=== PATIENT | female | born 1980 | race Hispanic/Latino ===

== ENCOUNTER 2017-02-16 04:34 | Inpatient (IN) | payer OTHER ==
[~2017-02-16 04:34] MED LIST: ADVIL200 MG PO; DILAUDID2 MG PO; LOTRIMIN ULTRA12 GM TOP; MOTRIN IB200 MG PO; NORCO 5-325 TA1 EACH; NORCO 5-325 TA1 EACH PO; OMEPRAZOLE20 MG PO; PERCOCET 10-321 EACH PO; PERCOCET 5-3251 EACH PO; Q-PAP EXTRA ST500 MG PO; RANITIDINE HCL150 MG PO; VICODIN 5-3001 EACH PO; ZOFRAN ODT4 MG PO
--- NOTE | 2017-02-16 07:52 | PR ---
[facility] [address] [facility] [place], [place] [address] Signed Progress Notes IP Datetime Report Generated by CPGiulia: 02/16/2017 07:52 PROGRESS NOTES: [id number] Impression: Normal progression of labor Procedures: Artificial ROM; Sterile Vag Exam Plan: Continue present management Informed Consent Obtain: Vaginal Delivery; Risks, Benefits and Alternatives Discussed VITAL SIGNS: [id number] Vital Signs: Reviewed; Within Normal Limits EXAM: [id number] Dilatation: 7.0 Effacement: 90 Station: -2 Uterine Contractions: every one to two minutes MEMBRANES: [id number] Membrane Status: Bulging ROM Note: amniotomy performed, clear copious amounts of fluid Comments: patient able to relax through contractions. Fetus A: [id number] FHR Baseline: 140's Variability: Moderate 6-25bpm Accelerations: 15X15 Decelerations: None FHR Category: Category I Presentation: Vertex Comments on Fetus A: reactive Fetus B: [id number] Signing Physician: Maggie Willis MD CC: *Electronically Signed* 02/16/17 0752 MAGGIE WILLIS MD PATIENT NAME: RUBY MENENDEZ PROGRESS NOTE DATE OF : 84 PHYSICIAN: MAGGIE WILLIS MD RPT #: [id number] REPORT IS CONFIDENTIAL AND NOT TO BE RELEASED WITHOUT AUTHORIZATION
--- NOTE | 2017-02-16 08:43 | PR ---
[facility] [address] [facility] [place], [place] [address] Signed Progress Notes IP Datetime Report Generated by CPN: 02/16/2017 08:43 PROGRESS NOTES: [id number] Impression: Normal progression of labor Procedures: Artificial ROM; Sterile Vag Exam Plan: Anticipate Vaginal Delivery Informed Consent Obtain: Vaginal Delivery; Risks, Benefits and Alternatives Discussed VITAL SIGNS: [id number] Vital Signs: Reviewed; Within Normal Limits EXAM: [id number] Dilatation: 9.0 Effacement: 100 Station: -1 Uterine Contractions: every one to two minutes MEMBRANES: [id number] Membrane Status: Ruptured Amniotic Fluid Color: Clear ROM Note: amniotomy performed, clear copious amounts of fluid Comments: patient feeling urge to push. Anticipate Fetus A: [id number] FHR Baseline: 140's Variability: Moderate 6-25bpm Accelerations: 15X15 Decelerations: None FHR Category: Category I Presentation: Vertex Comments on Fetus A: reactive Fetus B: [id number] Signing Physician: Maggie Willis MD CC: *Electronically Signed* 02/16/17 0843 MAGGIE WILLIS MD PATIENT NAME: RUBY MENENDEZ PROGRESS NOTE DATE OF : 84 PHYSICIAN: MAGGIE WILLIS MD RPT #: [id number] REPORT IS CONFIDENTIAL AND NOT TO BE RELEASED WITHOUT AUTHORIZATION
== END 2017-02-17 11:25 | disposition home or self-care (01) | DRG 775 ==
LOC: FBCO 04:34 → FBC 05:08
PROVIDERS: ADMIT Obstetrics & Gynecology
PROC: 10E0XZZ Delivery of Products of Conception, External Approach (ICD-10-PCS; principal; 2017-02-16)
PROC: 10907ZC Drainage of Amniotic Fluid, Therapeutic from Products of Conception, Via Natural or Artificial Opening (ICD-10-PCS; 2017-02-16)
DX: O62.3 Precipitate labor (principal); O90.81 Anemia of the puerperium; D64.9 Anemia, unspecified; O69.2XX0 Labor and delivery complicated by other cord entanglement, with compression, not applicable or unspecified; Z82.79 Family history of other congenital malformations, deformations and chromosomal abnormalities; Z28.21 Immunization not carried out because of patient refusal; Z3A.38 38 weeks gestation of pregnancy; Z37.0 Single live birth
CPT/HCPCS: 36415; 85027; J2590

== ENCOUNTER 2020-02-12 16:32 | Inpatient (IN) | payer OTHER ==
[~2020-02-12] VITALS: Ht 165.1 cm; Wt 104.0 kg
--- NOTE | 2020-02-13 11:56 | PR ---
[facility] [address] [facility] [place] [address] Signed PP Progress Notes Datetime Report Generated by CPN: 02/13/2020 11:56 SUBJECTIVE: [id number] Pain: Within normal limits Nausea/Vomiting: Denies Vital Signs: [id number] Vital Signs: Reviewed; Within Normal Limits Notable Details: PP Hgb/Hct = 7.0/24.0 EXAM: [id number] Abdomen/Uterus: Normal Lochia: Normal Extremities: Normal IMPRESSION/PLAN/PROCEDURES: [id number] Impression: Normal progression Other Impression: Anemia Plan: Continue present management Procedures: None Progress Notes: Doing well, without complaint. Discussed anemia with patient Signing Physician: Alvaro Brandon MD Copies: ~ *Electronically Signed* 02/13/20 1156 ALVARO BRANDON MD PATIENT NAME: RUBY MENENDEZ PROGRESS NOTE DATE OF : 84 PHYSICIAN: ALVARO BRANDON MD RPT #: [id number] REPORT IS CONFIDENTIAL AND NOT TO BE RELEASED WITHOUT AUTHORIZATION
--- NOTE | 2020-02-14 13:16 | PR ---
[facility] [address] [facility] [place], [place] [address] Signed PP Progress Notes Datetime Report Generated by CPN: 02/14/2020 13:16 SUBJECTIVE: [id number] Pain: Within normal limits Nausea/Vomiting: Denies Vital Signs: [id number] Vital Signs: Reviewed; Within Normal Limits Notable Details: PP Hgb/Hct = 7.0/24.0 EXAM: [id number] Abdomen/Uterus: Normal Lochia: Normal Extremities: Normal IMPRESSION/PLAN/PROCEDURES: [id number] Impression: Normal progression Other Impression: Anemia Plan: Continue present management Procedures: None Progress Notes: Doing well, without complaint; baby needs to stay until tomorrow since GBS Pos and delivery <4 hours after first dose of antibiotics. Plan home tomorrow. Signing Physician: Alvaro Brandon MD Copies: ~ *Electronically Signed* 02/14/20 1316 ALVARO BRANDON MD PATIENT NAME: RBUY MENENDEZ PROGRESS NOTE DATE OF : 84 PHYSICIAN: ALVARO BRANDON MD RPT #: [id number] REPORT IS CONFIDENTIAL AND NOT TO BE RELEASED WITHOUT AUTHORIZATION
--- NOTE | 2020-02-15 11:08 | PR ---
[facility] [address] [facility] [place] [address] Signed PP Progress Notes Datetime Report Generated by CPN: 02/15/2020 11:08 SUBJECTIVE: [id number] Pain: Within normal limits Nausea/Vomiting: Denies Vital Signs: [id number] Vital Signs: Reviewed; Within Normal Limits Notable Details: PP Hgb/Hct = 7.0/24.0 EXAM: [id number] Abdomen/Uterus: Normal Lochia: Normal Extremities: Normal IMPRESSION/PLAN/PROCEDURES: [id number] Impression: Normal progression Other Impression: Anemia Plan: Discharge Procedures: None Progress Notes: Doing well, without complalint, ready to go home. Signing Physician: Alvaro Brandon MD Copies: ~ *Electronically Signed* 02/15/20 1108 ALVARO BRANDON MD PATIENT NAME: RUBY MENENDEZ PROGRESS NOTE DATE OF : 84 PHYSICIAN: ALVARO BRANDON MD RPT #: [id number] REPORT IS CONFIDENTIAL AND NOT TO BE RELEASED WITHOUT AUTHORIZATION
== END 2020-02-15 11:35 | disposition home or self-care (01) | DRG 807 ==
LOC: FBCO 16:32 → FBC 18:15
PROVIDERS: ADMIT General Practice
PROC: 10E0XZZ Delivery of Products of Conception, External Approach (ICD-10-PCS; principal; 2020-02-12)
PROC: 10907ZC Drainage of Amniotic Fluid, Therapeutic from Products of Conception, Via Natural or Artificial Opening (ICD-10-PCS; 2020-02-12)
DX: O99.824 Streptococcus B carrier state complicating childbirth (principal); Z37.0 Single live birth; Z3A.38 38 weeks gestation of pregnancy; O76 Abnormality in fetal heart rate and rhythm complicating labor and delivery; O99.02 Anemia complicating childbirth; D64.9 Anemia, unspecified; Z87.440 Personal history of urinary (tract) infections
CPT/HCPCS: 36415; 59025; 85027; 99212; A9270; J2540; J2590

== ENCOUNTER 2022-05-17 20:26 | Emergency (ER) | payer OTHER ==
[~2022-05-17] VITALS: Ht 165.1 cm; Wt 107.2 kg
[2022-05-18] MEDS ORDERED: CEPHALEXIN500 MG PO (01:38)
== END 2022-05-18 01:51 | disposition home or self-care (01) ==
LOC: ED 20:26
DX: L03.115 Cellulitis of right lower limb (principal); Z87.891 Personal history of nicotine dependence
CPT/HCPCS: 73610; J0696

== ENCOUNTER 2024-09-13 18:36 | Emergency (ER) | payer OTHER ==
[~2024-09-13] VITALS: Ht 165.1 cm; Wt 99.8 kg
[~2024-09-13 18:36] MED LIST changes: +CEPHALEXIN500 MG PO
[2024-09-13] MEDS ORDERED: diphenhydrAMINE HCL 50 MG/ML VIAL IV ONE (19:00)
[2024-09-13] MEDS ORDERED: DEXAMETHASONE SOD PHOS 10 MG/ML VIAL IV ONE (19:00)
[2024-09-13] MEDS ORDERED: ondansetron HCL 4 MG/2 ML VIAL IV ONE (19:00)
[2024-09-13 19:09] LABS: BASOPHILS 0.8 % (0-2); EOSINOPHILS 1.1 % (0-6); HEMATOCRIT 25.5 % (35.0-50.0); HEMOGLOBIN 7.3 g/dL (12.0-18.0); MCH 16.7 (27-36); MCHC 28.7 g/dl (30-36); MCV 58.4 fl (81-99); NEUTROPHILS 60.1 % (39-80); PLATELET COUNT 522 K/uL (140-440); RBC 4.37 M/ul (4.3-5.7); RDW 19.9 (10.5-15.0)
[2024-09-13 19:19] LABS: ALBUMIN 3.6 g/dL (3.4-5.0); ALBUMIN/GLOBULIN RATIO 0.86 (1.1-2.4); ANION GAP 14.7 (7-21); BILIRUBIN, TOTAL 0.3 mg/dL (0.2-1.0); BUN/CREATININE RATIO 19.75 (6.0-28.6); CREATININE, SERUM 0.81 mg/dL (0.55-1.02); POTASSIUM 3.7 mmol/L (3.5-5.1); PROTEIN, TOTAL 7.8 g/dL (6.4-8.2)
[2024-09-13] MEDS ORDERED: VITAMIN C500 M4 PO (20:47)
[2024-09-13] MEDS ORDERED: FERROUS SULFAT325 M2 PO (20:47)
[2024-09-13] MEDS ORDERED: VALTREX1000 MG PO (20:47)
[2024-09-13] MEDS ORDERED: PREDNISONE20 MG PO (20:47)
[2024-09-13] MEDS ORDERED: CYCLOBENZAPRINE HCL 10 MG TAB PO ONE (21:00)
[2024-09-13 21:23] VITALS: BP 116/69
--- NOTE | 2024-09-14 11:52 | EKG ---
[facility] [address] [facility] [place], [place] [address] Signed Normal sinus rhythm Normal ECG Confirmed by Chayo Koehler MD ([id number]) on 09/14/2024 11:51:49 AM Electronically Signed By: CHAYO KOEHLER MD 09/14/24 1152 PATIENT NAME: RUBY ORTEGA Electrocardiogram DATE OF : 84 PHYSICIAN: CHAYO KOEHLER MD REPORT #: [id number] REPORT IS CONFIDENTIAL AND NOT TO BE RELEASED WITHOUT AUTHORIZATION
== END 2024-09-13 21:24 | disposition home or self-care (01) ==
LOC: ED 18:36
PROVIDERS: Emergency Medicine
DX: G51.0 Bell's palsy (principal); D64.9 Anemia, unspecified; Z87.891 Personal history of nicotine dependence
CPT/HCPCS: 36415; 70450; 70496; 70498; 71045; 80053; 85025; 85060; 93005; 93010; 96375; 99284-25; J1100; J1200; J2405; Q9967